=== PATIENT | male | born 1955 | race Caucasian/White ===

== ENCOUNTER → 2019-12-18 16:35 | Outpatient (BNVA) | payer SELFPAY | PROVIDERS: Family Provider Family Medicine; PCP Family Medicine; Visit Provider Family Medicine | DX: I10 Essential (primary) hypertension (principal); M51.9 Unspecified thoracic, thoracolumbar and lumbosacral intervertebral disc disorder; M19.90 Unspecified osteoarthritis, unspecified site; R10.13 Epigastric pain; Z86.010 Personal history of colon polyps; R19.8 Other specified symptoms and signs involving the digestive system and abdomen | CPT/HCPCS: 80053; 83690; 85025 ==

== ENCOUNTER 2020-01-08 07:00 | Day surgery (SDC) | payer OTHER, SELFPAY ==
--- NOTE | 2020-01-08 07:23 | ANES.PREANE2 ---
Pre-Anesthetic Assessment Pre-Anesthetic Assessment: Height/Weight: Height 1.7 m Weight 72.575 kg Preop Diagnosis: Abdominal pain, weight loss Proposed Procedure: Operation Date: 01/08/20 08:30 Proposed Procedures p EGD/COLON [id number] Z86.010 R10.9(Not Applicable) - Anatoliy Gracia MD s Colonoscopy(Not Applicable) - Anatoliy Gracia MD Social: Social History: No alcohol and No tobacco Exam: Pre-Anes Outpt Exam: alert, oriented x 3, clear to auscultation bilaterally and regular rate & rhythm Airway: Submandibular: WNL Cervical ROM: WNL MP: 2 Dentition: Partials (lower) History/ROS: No significant history except as noted Pulmonary: Pulmonary: None reported CV/HEM: CV/HEM: HTN : : None reported Hepatic: Hepatic: None reported GI: Comments: h/o abd pain Metabolic: Metabolic: None reported Comments: unintentional weight loss Musc/skel: Musc/skel: Lower Back Pain and OA/DJD Neuropsych: Neuropsych: None reported Anesthetic Plan: ASA status: 3 Anesthesia: Anesthesia Evaluation and MAC Risk of > 500 ml blood loss (7ml/kg in children): No PFSH Anesthesia PFSH: Medical History Cataracts, both eyes Chronic arthritis Gout History of colon polyps Hypertension Lumbar disc disease Surgical History H/O hernia repair History of carpal tunnel surgery History of knee surgery arthroscopic right knee due to gout Family History Father CAD (coronary artery disease) Mother Cancer colon, lung Denies family history of Anesthesia complication Bleeding disorder Social History Smoking and tobacco status: never smoked Alcohol intake: never Household members: spouse Marital status: History of recent travel: No Data Anesthesia Cardiac Studies: No Data to Display
[2020-01-08 07:24] VITALS: BP 146/98; PULSE 67; RESP 18; TEMP 37.1; O2SAT 96
[2020-01-08 07:25] VITALS: BMI 25.0
[2020-01-08] MEDS: sodium chloride 0.9% 1,000 ML 30 ML IV (07:38)
--- NOTE | 2020-01-08 09:46 | W.PM.OPSUD ---
Surgery/Procedure H&P Update DATE OF PROCEDURE: January 08, 2020 DATE H&P PERFORMED: 01/02/20 H&P UPDATE INFORMATION: I have reviewed H&P completed within last 30 days, I have examined patient prior to procedure and No changes to prior documentation PREOP DIAGNOSIS: Abdominal pain, weight loss PLANNED PROCEDURE: Operation Date: 01/08/20 08:30 Proposed Procedures p EGD/COLON [id number] Z86.010 R10.9(Not Applicable) - Anatoliy Gracia MD s Colonoscopy(Not Applicable) - Anatoliy Gracia MD
[2020-01-08 10:30] VITALS: BP 113/78; PULSE 78; RESP 16; TEMP 36.1; O2SAT 98
[2020-01-08 10:47] VITALS: BP 120/77; PULSE 71; RESP 18; O2SAT 98
== END 2020-01-08 11:05 | disposition home or self-care (01) ==
PROVIDERS: PCP Family Medicine; Visit Provider Surgery
PROC: 0DJ08ZZ Inspection of Upper Intestinal Tract, Via Natural or Artificial Opening Endoscopic (ICD-10-PCS; CPT 43235; principal; 2020-01-08 08:30)
PROC: 0DJD8ZZ Inspection of Lower Intestinal Tract, Via Natural or Artificial Opening Endoscopic (ICD-10-PCS; CPT 45378; 2020-01-08 08:30)
DX: R10.9 Unspecified abdominal pain (principal); K57.30 Diverticulosis of large intestine without perforation or abscess without bleeding; Z86.010 Personal history of colon polyps; I10 Essential (primary) hypertension; M19.90 Unspecified osteoarthritis, unspecified site; Z82.49 Family history of ischemic heart disease and other diseases of the circulatory system
CPT/HCPCS: 12345; 43239; 45378; 88305; J7030